=== PATIENT | male | born 1940 ===

== ENCOUNTER 2017-04-22 10:53 | Emergency (ER) | payer MEDICAID, MEDICARE ==
[2017-04-22 11:23] VITALS: BP 131/70; PULSE 70; RESP 20; TEMP 97.5; O2SAT 97
--- NOTE | 2017-04-22 11:35 | C.PDOC ---
History Of Present Illness 76 yo male came to ER for medicaiton refill. Pt notes that he lived in for two [place] and now return. Notes that he took his last dose today. Requesting refills of Metoprolol 50mg BID and Arpit 40 mg. Also requests medication for constipation. Notes he eats lots of fiber, sometimes the stool is hard. Pt has no physical complaints. No chest pain, headache, sob, abdominal pain, or any other complaint. Time Seen by Provider: 04/22/17 11:05 Chief Complaint (Nursing): Med Refill Past Medical History Vital Signs: Last Vital Signs Temp 97.5 F L 04/22/17 10:57 Pulse 70 04/22/17 10:57 Resp 20 04/22/17 10:57 BP 131/70 04/22/17 10:57 Pulse Ox 97 04/22/17 13:21 - Medical History PMH: HTN Family History: States: Unknown Family Hx - Social History Hx Alcohol Use: No Hx Substance Use: No - Immunization History Hx Tetanus Toxoid Vaccination: No Hx Influenza Vaccination: No Hx Pneumococcal Vaccination: No Physical Exam - Physical Exam Appears: Non-toxic, No Acute Distress Skin: Normal Color, Warm, Dry, No Rash Head: Atraumatic, Normacephalic Eye(s): bilateral: Normal Inspection, EOMI Nose: Normal Oral Mucosa: Moist Neck: Normal ROM, Supple Chest: Symmetrical Cardiovascular: Rhythm Regular, No Murmur Respiratory: Normal Breath Sounds, No Accessory Muscle Use, No Rales, No Rhonchi , No Wheezing Gastrointestinal/Abdominal: Soft, No Tenderness Extremity: Normal ROM, No Pedal Edema Neurological/Psych: Oriented x3, Normal Speech ED Course And Treatment O2 Sat by Pulse Oximetry: 97 (RA) Pulse Ox Interpretation: Normal Progress Note: Metoprolol refilled. Unaware of what "Arpit" medication is. Case discussed with Dr Toney, agreed upon plan and treatment. Disposition - Disposition Referrals: Shoshana Fiore MD [Medical Doctor] - Disposition: HOME/ ROUTINE Disposition Time: 11:29 Condition: STABLE Additional Instructions: Vaya a mcclure mdico o la clnica en 2-5 escobedo sin falta, para mas evaluacin. [place] los medicamentos padmini indicado. Volver a la supriya de emergencia en cualquier momento si los sntomas persisten o empeoran. Prescriptions: Docusate [Colace] 100 mg PO BID #14 cap Metoprolol Tartrate [Lopressor] 50 mg PO BID #28 tab Instructions: Medicine Refill (ED) Forms: [facility] (Portuguese) Print Language: BELARUSIAN - Clinical Impression Clinical Impression: Review of medication - PA / ACTUARIAL INTERN / Resident Statement MD/DO has reviewed & agrees with the documentation as recorded. - Scribe Statement The provider has reviewed the documentation as recorded by the Scribe Madhuri Fiore All medical record entries made by the Sayibkatharina were at my direction and personally dictated by me. I have reviewed the chart and agree that the record accurately reflects my personal performance of the history, physical exam, medical decision making, and the department course for this patient. I have also personally directed, reviewed, and agree with the discharge instructions and disposition.
== END 2017-04-22 11:40 | disposition home or self-care (01) ==
LOC: C.ER 10:53
DX: Z76.0 Encounter for issue of repeat prescription (principal)